=== PATIENT | male | born 1950 | race Hispanic/Latino ===

== ENCOUNTER → 2018-03-03 | Outpatient (CLI) | payer OTHER ==
[~2018-03-03] MED LIST: HYDR12.530 PO; LISI40TA4 PO; SIMV20TA6 PO; TAMS0.4C32 PO
== END | disposition home or self-care (01) ==
LOC: OIH 09:19
PROVIDERS: ATTEND Family Medicine
DX: R51 Headache (principal); Z72.89 Other problems related to lifestyle
CPT/HCPCS: 70220

== ENCOUNTER → 2018-06-30 | Outpatient (CLI) | payer OTHER | END | disposition home or self-care (01) | LOC: OIH 10:06 | PROVIDERS: ATTEND Family Medicine | DX: M85.88 Other specified disorders of bone density and structure, other site (principal); M16.11 Unilateral primary osteoarthritis, right hip | CPT/HCPCS: 73502; 73552 ==

== ENCOUNTER 2019-06-15 09:39 | Emergency (ER) | payer OTHER ==
[~2019-06-15 09:39] MED LIST changes: +SIMV-43 PO; -SIMV20TA6 PO
[2019-06-15] MEDS ORDERED: TETANUS/DIPHTHERIA TOXOID [ADULT] 0.5 ML VIAL IM ONE (10:44)
[2019-06-15] MEDS ORDERED: OCTYL 2-CYANOACRYLATE 1 EACH TP ONE ×2 (10:52→11:02)
== END 2019-06-15 11:16 | disposition home or self-care (01) ==
LOC: EDH 09:39
DX: S61.412A Laceration without foreign body of left hand, initial encounter (principal); E78.5 Hyperlipidemia, unspecified; I10 Essential (primary) hypertension; Z79.82 Long term (current) use of aspirin; X58.XXXA Exposure to other specified factors, initial encounter; Y93.89 Activity, other specified; Y92.098 Other place in other non-institutional residence as the place of occurrence of the external cause; Y99.8 Other external cause status
CPT/HCPCS: 12041; 90714

== ENCOUNTER → 2020-07-15 | Outpatient (CLI) | payer OTHER ==
[~2020-07-15] MED LIST changes: -LISI40TA4 PO; +LISI40TA9 PO
== END | disposition home or self-care (01) ==
LOC: OIH 11:06
PROVIDERS: ATTEND Family Medicine
DX: M19.012 Primary osteoarthritis, left shoulder (principal); M25.512 Pain in left shoulder
CPT/HCPCS: 73030

== ENCOUNTER → 2020-09-10 | Outpatient (CLI) | payer OTHER | END | disposition home or self-care (01) | LOC: OIH 13:19 | PROVIDERS: ATTEND Family Medicine | DX: M77.31 Calcaneal spur, right foot (principal); M85.871 Other specified disorders of bone density and structure, right ankle and foot; M47.818 Spondylosis without myelopathy or radiculopathy, sacral and sacrococcygeal region | CPT/HCPCS: 72220; 73630 ==

== ENCOUNTER 2020-11-02 10:22 | Observation (INO) | payer OTHER ==
[~2020-11-02] VITALS: Ht 180.3 cm; Wt 102.9 kg
[2020-11-02 11:01] VITALS: BP 141/60
[2020-11-02 11:25] LABS: EOSINOPHILS % (AUTO) 3.5 % (0.0-8.0); HEMATOCRIT 40.1 % (42-54); LYMPHOCYTES % (AUTO) 30.3 % (21.0-51.0); MEAN CORPUSCULAR HGB CONC 33.2 g/dL (32.0-36.0); MEAN CORPUSCULAR VOLUME 96.4 fL (79-99); MONOCYTES % (AUTO) 9.6 % (3.0-13.0); NEUTROPHILS % (AUTO) 55.4 % (40.0-77.0); PLATELET COUNT (AUTO) 148 K/uL (130-400); RED BLOOD CELL COUNT(AUTO) 4.16 MIL/uL (4.50-6.20); WHITE BLOOD COUNT (AUTO) 5.9 K/uL (4.8-10.8)
[2020-11-02 11:29] LABS: CARBON DIOXIDE 24 mmol/L (21-32); CHLORIDE 108 mmol/L (101-111); CREATININE 0.9 mg/dL (0.5-1.5); GLOMERULAR FILTR. RATE CALC 89 mL/min (>60); GLUCOSE,RANDOM 126 mg/dL (70-105); POTASSIUM 3.3 mmol/L (3.5-5.1); SODIUM SERUM 144 mmol/L (136-145); UREA NITROGEN, BLOOD 21 mg/dL (7-18)
[2020-11-02 11:39] LABS: B-TYPE NATRIURETIC PEPTIDE 58 pg/mL (0-100)
[2020-11-02 11:45] LABS: ALANINE AMINOTRANSFERASE 38 U/L (12-78); ALBUMIN 3.8 g/dL (3.5-5.0); ASPARTATE AMINOTRANSFERASE 17 U/L (10-37); BILIRUBIN,TOTAL 0.7 mg/dL (0.2-1.0); CREATINE KINASE, TOTAL 124 U/L (21-232); MYOGLOBIN 48 ng/mL (10-92); TOTAL PROTEIN, SERUM 7.2 g/dL (6.0-8.3); TROPONIN I < 0.04 ng/mL (0.00-0.06)
[2020-11-02] MEDS ORDERED: POTASSIUM CHLORIDE 10MEQ SR TAB PO SCH (12:00)
[2020-11-02] MEDS ORDERED: NITROGLYCERIN 1GM OINT 1 INCH/1GM TD ONE (12:00)
[2020-11-02] MEDS ORDERED: ASPIRIN 325MG EC TAB PO ONE (12:00)
[2020-11-02] MEDS ORDERED: ONDANSETRON 4MG INJ IV PRN (12:15)
[2020-11-02] MEDS ORDERED: HYDRALAZINE 20MG/ML VIAL IV PRN (12:15)
[2020-11-02] MEDS ORDERED: CLOPIDOGREL 75MG TAB PO SCH (12:15)
[2020-11-02] MEDS ORDERED: ACETAMINOPHEN 325 MG TAB PO PRN (12:15)
[2020-11-02] MEDS ORDERED: NITROGLYCERIN 0.4 MG SL TAB SL PRN (12:15)
[2020-11-02] MEDS ORDERED: LACTULOSE 20 GM/30 ML UDCUP PO PRN (12:15)
[2020-11-02] MEDS ORDERED: KCL 20 MEQ ERTAB PO SCH (12:15)
[2020-11-02] MEDS: 0.9%NACL 1000ML 1,000 ML IV SCH (12:34)
[2020-11-02 12:44] LABS: THYROID STIMULATING HORMONE 0.77 uIU/mL (0.36-3.74)
[2020-11-02] MEDS: NITROGLYCERIN 1GM OINT 1 INCH/1GM TD SCH (18:21)
[2020-11-02 18:44] VITALS: BP 152/74
[2020-11-02 18:53] LABS: AMPHET/METH SCREEN,URINE NEGATIVE (NEGATIVE); BARBITURATE SCREEN, URINE NEGATIVE (NEGATIVE); BENZODIAZEPINES SCREEN,URINE NEGATIVE (NEGATIVE); CANNABINOID SCREEN,URINE NEGATIVE (NEGATIVE); COCAINE SCREEN,URINE NEGATIVE (NEGATIVE); OPIATE SCREEN,URINE NEGATIVE (NEGATIVE); PHENCYCLIDINE SCREEN,URINE NEGATIVE (NEGATIVE)
[2020-11-02 19:30] VITALS: BP 141/69
[2020-11-02] MEDS ORDERED: ATORVASTATIN 40 MG TABLET PO SCH (21:00)
[2020-11-02] MEDS ORDERED: FAMOTIDINE 20MG TAB PO SCH (21:00)
[2020-11-03] MEDS: NITROGLYCERIN 1GM OINT 1 INCH/1GM TD SCH ×2 (00:19→06:04)
[2020-11-03] MEDS: 0.9%NACL 1000ML 1,000 ML IV SCH (00:38)
[2020-11-03 00:53] VITALS: BP 147/73
[2020-11-03 01:30] VITALS: BP 142/73
[2020-11-03] MEDS ORDERED: IBUPROFEN 800 MG TAB PO PRN (02:00)
[2020-11-03] MEDS ORDERED: ONDANSETRON ODT 4MG TAB PO PRN (02:00)
[2020-11-03] MEDS: PREDNISOLONE 1% DROPS OD SCH ×3 (02:00→06:00)
[2020-11-03] MEDS ORDERED: IBUP-2077 PO (02:02)
[2020-11-03] MEDS ORDERED: BACL10TA PO (02:02)
[2020-11-03] MEDS ORDERED: OFLO35OS OD (02:02)
[2020-11-03] MEDS ORDERED: ONDA4TAB10 PO (02:02)
[2020-11-03] MEDS ORDERED: ATRO2DRO (02:02)
[2020-11-03] MEDS ORDERED: PREDAOS OD (02:02)
[2020-11-03] MEDS ORDERED: SIMV-43 PO (02:05)
[2020-11-03 04:24] VITALS: BP 136/70
[2020-11-03 06:23] LABS: BASOPHILS % (AUTO) 0.9 % (0.0-5.0); EOSINOPHILS % (AUTO) 4.5 % (0.0-8.0); HEMATOCRIT 38.4 % (42-54); MEAN CORPUSCULAR HEMOGLOBIN 30.7 pg (27.0-33.0); MEAN CORPUSCULAR HGB CONC 32.3 g/dL (32.0-36.0); MONOCYTES % (AUTO) 9.6 % (3.0-13.0); NEUTROPHILS % (AUTO) 50.8 % (40.0-77.0); PLATELET COUNT (AUTO) 132 K/uL (130-400); RED BLOOD CELL COUNT(AUTO) 4.04 MIL/uL (4.50-6.20); RED CELL DISTRIBUTION WIDTH 14.1 % (11.0-15.5); WHITE BLOOD COUNT (AUTO) 5.8 K/uL (4.8-10.8)
[2020-11-03] MEDS ORDERED: NITROGLYCERIN 1GM OINT 1 INCH/1GM TD SCH (06:30)
[2020-11-03 06:35] LABS: CREATININE 0.9 mg/dL (0.5-1.5); MAGNESIUM 1.8 mg/dL (1.80-2.40); PHOSPHORUS 3.5 mg/dL (2.5-4.9); POTASSIUM 3.9 mmol/L (3.5-5.1)
[2020-11-03 08:00] VITALS: BP 157/69
[2020-11-03] MEDS ORDERED: OFLOXACIN 0.3% 5ML DROPS OD SCH (09:00)
[2020-11-03] MEDS ORDERED: ATROPINE SULFATE 5 ML DROPS OD SCH (09:00)
[2020-11-03] MEDS ORDERED: ENOXAPARIN SODIUM 40 MG/0.4 ML SYRINGE SQ SCH (09:00)
[2020-11-03] MEDS ORDERED: HYDROCHLOROTHIAZIDE 25 MG TABLET PO SCH (09:00)
[2020-11-03] MEDS ORDERED: LISINOPRIL 40 MG TABLET PO SCH (09:00)
[2020-11-03] MEDS ORDERED: BACLOFEN 10 MG TABLET PO SCH (09:00)
== END 2020-11-03 10:20 | disposition home or self-care (01) ==
LOC: EDH 10:22 → EDHIP 12:12 → 4AH 11-03 01:18
PROVIDERS: ADMIT Internal Medicine; ATTEND Internal Medicine
DX: R07.89 Other chest pain (principal); M79.89 Other specified soft tissue disorders; E78.5 Hyperlipidemia, unspecified; I10 Essential (primary) hypertension; F19.90 Other psychoactive substance use, unspecified, uncomplicated; E66.9 Obesity, unspecified; H40.9 Unspecified glaucoma; Z79.899 Other long term (current) drug therapy; Z90.49 Acquired absence of other specified parts of digestive tract; Z88.6 Allergy status to analgesic agent
CPT/HCPCS: 36415 ×2; 71045; 80048; 80053; 80061; 80305; 82550; 83735; 83874; 83880; 84100; 84439; 84443; 84484 ×3; 85025 ×2; 93005 ×3; 93971; 96360; 96361 ×2; 99285; G0378 ×22; J7030; J7510

== ENCOUNTER 2021-03-25 17:57 | Emergency (ER) | payer OTHER ==
[~2021-03-25] VITALS: Ht 182.9 cm; Wt 102.5 kg
[~2021-03-25 17:57] MED LIST changes: +ATRO2DRO; +BACL10TA PO; +IBUP-2077 PO; +OFLO35OS OD; +ONDA4TAB10 PO; +PREDAOS OD; -TAMS0.4C32 PO
[2021-03-25] MEDS ORDERED: ONDANSETRON 4MG INJ IVP STA (18:26)
[2021-03-25] MEDS ORDERED: MORPHINE 2 MG SYG IVP STA (18:26)
[2021-03-25 19:01] LABS: BASOPHILS % (AUTO) 0.7 % (0.0-5.0); EOSINOPHILS % (AUTO) 17.9 % (0.0-8.0); HEMATOCRIT 36.7 % (42-54); LYMPHOCYTES % (AUTO) 28.2 % (21.0-51.0); MEAN CORPUSCULAR HEMOGLOBIN 32.6 pg (27.0-33.0); MEAN CORPUSCULAR VOLUME 98.9 fL (79-99); MONOCYTES % (AUTO) 8.7 % (3.0-13.0); NEUTROPHILS % (AUTO) 44.1 % (40.0-77.0); PLATELET COUNT (AUTO) 138 K/uL (130-400); RED BLOOD CELL COUNT(AUTO) 3.71 MIL/uL (4.50-6.20); RED CELL DISTRIBUTION WIDTH 13.9 % (11.0-15.5); WHITE BLOOD COUNT (AUTO) 7.3 K/uL (4.8-10.8)
[2021-03-25 19:11] LABS: CREATININE 1.1 mg/dL (0.5-1.5); POTASSIUM 3.8 mmol/L (3.5-5.1)
[2021-03-25 19:16] LABS: ALBUMIN 3.7 g/dL (3.5-5.0); BILIRUBIN,TOTAL 0.3 mg/dL (0.2-1.0)
[2021-03-25 19:17] VITALS: BP 122/64
[2021-03-25] MEDS ORDERED: ACET1TAB25 PO (20:02)
== END 2021-03-25 20:22 | disposition home or self-care (01) ==
LOC: EDH 17:57
DX: S30.1XXA Contusion of abdominal wall, initial encounter (principal); S20.211A Contusion of right front wall of thorax, initial encounter; X58.XXXA Exposure to other specified factors, initial encounter; Y93.89 Activity, other specified; Y92.89 Other specified places as the place of occurrence of the external cause; Y99.8 Other external cause status
CPT/HCPCS: 36415; 71250; 74176; 80053; 85025; 93005; 96374; 96375; 99285; J2405

== ENCOUNTER 2022-02-27 06:45 | Day surgery (SDC) | payer OTHER ==
[2022-02-25 13:57] LABS: BASOPHILS % (AUTO) 1.3 % (0.0-5.0); EOSINOPHILS % (AUTO) 2.5 % (0.0-8.0); HEMATOCRIT 47.9 % (42-54); LYMPHOCYTES % (AUTO) 29.6 % (21.0-51.0); MEAN CORPUSCULAR VOLUME 97.2 fL (79-99); MONOCYTES % (AUTO) 9.9 % (3.0-13.0); NEUTROPHILS % (AUTO) 56.6 % (40.0-77.0); PLATELET COUNT (AUTO) 126 K/uL (130-400); RED BLOOD CELL COUNT(AUTO) 4.93 MIL/uL (4.50-6.20); RED CELL DISTRIBUTION WIDTH 13.4 % (11.0-15.5); WHITE BLOOD COUNT (AUTO) 7.1 K/uL (4.8-10.8)
[2022-02-26 11:52] VITALS: BP 156/77
[2022-02-27] VITALS (19 sets, daily range): BP systolic 127–152; BP diastolic 65–76
[~2022-02-27] VITALS: Ht 182.9 cm; Wt 101.1 kg
[~2022-02-27 06:45] MED LIST changes: -ATRO2DRO; -BACL10TA PO; -IBUP-2077 PO; -OFLO35OS OD; -ONDA4TAB10 PO; -PREDAOS OD
[2022-02-27] MEDS ORDERED: CEFTRIAXONE 1G VIAL ONE (07:21)
[2022-02-27] MEDS ORDERED: LACTATED RINGERS 1000ML 1,000 ML IV ONE (07:21)
[2022-02-27] MEDS ORDERED: SIMV-43 PO (07:26)
[2022-02-27] MEDS ORDERED: HYDROCHLOROTHIAZIDE PO (07:26)
[2022-02-27] MEDS ORDERED: PROPOFOL 10 MG/ML 20ML VIAL IV ONE (09:27)
[2022-02-27] MEDS ORDERED: MIDAZOLAM HCL 1 MG/ML 2ML VIAL ONE (09:28)
[2022-02-27] MEDS ORDERED: FENTANYL CITRATE PF 50 MCG/1 ML 2ML VIAL ONE (09:28)
[2022-02-27] MEDS ORDERED: ONDANSETRON 4MG INJ ONE (09:29)
[2022-02-27] MEDS ORDERED: DEXAMETHASONE SOD PHOSPHATE 10MG/ML 1ML VIAL ONE (09:31)
[2022-02-27] MEDS ORDERED: LIDOCAINE PF 100MG/5ML (2%) SYRINGE 5ML ONE (09:31)
[2022-02-27] MEDS ORDERED: KETOROLAC 30MG VIAL (30MG/ML) ONE (09:32)
[2022-02-27] MEDS ORDERED: OPIUM/BELLADONNA ALKALOIDS 1 EACH SUPP.RECT RC ONE (09:37)
[2022-02-27] MEDS ORDERED: GLYCOPYRROLATE 1 MG/5 ML SYRINGE ONE (09:56)
[2022-02-27] MEDS ORDERED: PHENAZOPYRIDINE HCL 200 MG TABLET ONE (12:12)
[2022-02-28] MEDS ORDERED: CEFTRIAXONE 1G VIAL IVP SCH (06:00)
== END 2022-02-27 13:15 | disposition home or self-care (01) ==
LOC: DAH 06:45
PROVIDERS: ATTEND Urology
DX: N40.1 Benign prostatic hyperplasia with lower urinary tract symptoms (principal); Z20.822 Contact with and (suspected) exposure to COVID-19; N13.8 Other obstructive and reflux uropathy; N32.0 Bladder-neck obstruction; R39.15 Urgency of urination; R35.0 Frequency of micturition; R33.8 Other retention of urine; R39.14 Feeling of incomplete bladder emptying; R35.1 Nocturia; G47.30 Sleep apnea, unspecified; I10 Essential (primary) hypertension; Z98.890 Other specified postprocedural states; Z90.49 Acquired absence of other specified parts of digestive tract
CPT/HCPCS: 93005; 87426; 80048; 85025; 36415; 52648; A6260; J7120 ×2; A4354; A4340; J3010; J3490; J1100; J2001; J0696; J2250; J2704; J2405; J1885; A4358; A4215; A4223; A4222; A4221; A4663; A4600; A4510

== ENCOUNTER 2022-04-23 23:00 | Emergency (ER) | payer OTHER ==
[~2022-04-23] VITALS: Ht 182.9 cm; Wt 102.1 kg
[~2022-04-23 23:00] MED LIST changes: -HYDR12.530 PO; +HYDROCHLOROTHIAZIDE PO
[2022-04-23 23:04] VITALS: BP 130/81
[2022-04-23] MEDS ORDERED: ACETAMINOPHEN WITH CODEINE 1 TAB TAB PO ONE (23:30)
== END 2022-04-23 23:33 | disposition home or self-care (01) ==
LOC: EDH 23:00
DX: H57.11 Ocular pain, right eye (principal); I10 Essential (primary) hypertension; Z98.890 Other specified postprocedural states; Z88.6 Allergy status to analgesic agent